=== PATIENT | male | born 1955 | race Caucasian/White ===

== ENCOUNTER → 2016-08-18 | Day surgery (SDC) | payer MEDICAID ==
[~2016-08-18] MED LIST: BENZOCAINE UNIT DOSE SPRAY HURRICAINE MM ONE; MIDAZOLAM 2 MG/2 ML VIAL IVP ONE; NS 1,000 ML IV ONE; PROPOFOL 200 MG/20 ML VIAL IVP ONE; PROPOFOL 200 MG/20 ML VIAL ONE; fentaNYL 100 MCG/2 ML INJ IVP ONE
--- NOTE | 2016-08-18 08:45 | CPEKG ---
Heart Rate: 81 RR Interval: 741 QRSD Interval: 102 QT Interval: 416 QTC Interval: 483 QRS [place]: 62 T Wave [place]: 48 EKG Severity - ABNORMAL ECG - EKG Impression: ATRIAL FIBRILLATION, V-RATE 58-96 Electronically Signed By: Gorge Almendarez 18-Aug-2016 14:12:09
[2016-08-18 09:03] LABS: ANION GAP 7 mEq/L (8-16); CARBON DIOXIDE 26 mEq/l (22-31); CHLORIDE 103 mEq/L (97-110); CREATININE 0.7 mg/dL (0.7-1.3); GLOMERULAR FILTRATION RATE > 60; GLUCOSE 100 mg/dL (70-100); MAGNESIUM 2.1 mg/dL (1.6-2.3); POTASSIUM 4.5 mEq/L (3.5-5.2); SODIUM 136 mEq/L (134-144)
[2016-08-18 09:18] LABS: APTT 32.6 SEC (23.0-38.0); INR 1.78 (0.83-1.16); PROTIME(PATIENT) 20.8 SEC (12.0-15.0)
--- NOTE | 2016-08-18 10:37 | CPEKG ---
Heart Rate: 54 RR Interval: 1111 P-R Interval: 204 QRSD Interval: 102 QT Interval: 468 QTC Interval: 444 P [place]: 58 QRS [place]: 75 T Wave [place]: 57 EKG Severity - NORMAL ECG - EKG Impression: SINUS RHYTHM EKG Impression: RIGHT VENTRICULAR CONDUCTION DELAY Electronically Signed By: Gorge Almendarez 18-Aug-2016 14:11:16
--- NOTE | 2016-08-18 10:40 | CPIP ---
[f rep st] INVASIVE CARDIAC PROCEDURE DATE OF PROCEDURE: 08/18/2016 PROCEDURE: STACY-guided cardioversion. INDICATIONS: Symptomatic atrial fibrillation. COMPLICATIONS: None apparent. DESCRIPTION OF PROCEDURE: N.p.o. status was confirmed, informed consent obtained, and time-out perf ormed. Sedation was provided by Dr. Ruiz of the anesthesia service. The STACY probe was passed w ithout difficulty and images obtained. Please see separate report. In summary, normal LV systolic function. No intracardiac thrombus. Mild mitral regurgitation. Intact interatrial septum. We elected to proceed with cardioversion. The patient received a single 200 joule synchronized shoc k, which converted him from atrial fibrillation to sinus bradycardia. 12-lead EKG is pending. CONCLUSIONS: 1. Successful STACY-guided cardioversion. 2. Continue Xarelto for a minimum of 30 days post cardioversion. 3. Follow up with RODNEY Leblanc in 1 week. 4. Patient currently in stable condition. /[id number]/MODL
--- NOTE | 2016-08-19 13:51 | ECHO ---
[id number] + + [address] : : [place] [id number] : : [phone] + + Transesophageal Echocardiographic Report + ----+ :Name: JEFF WRIGHT MStudy Date: 08/18/2016 09:16 AM : : Hospital Ad[place]: [id number] [facility]: :: 1955 Gender: Male : :Age: 61 yrs Race: WH : :Reason For Study: Atrial Fibrillation : + ----+ Left Ventricle Left ventricular systolic function is normal. Atria Injection of contrast documented no interatrial shunt. No thrombus is detected in the left atrial appendage. Mitral Valve There is mild mitral regurgitation. Aortic Valve The aortic valve is trileaflet. Procedure NPO status was confirmed, informed consent obtained, and timeout performed. Sedation was provided by the anesthesia service. The STACY probe was passed without difficulty. No apparent complications. Conclusion A 2D transesophageal echocardiogram with color flow Doppler was performed. Proceed with cardioversion. Left ventricular systolic function is normal. Injection of contrast documented no interatrial shunt. There is mild mitral regurgitation. No thrombus is detected in the left atrial appendage. Final Reading Physician: Dr Diana Chin electronically signed on 08/19/2016 01:50 PM Ordering Physician: Diana Chin Performed By: Dr Diana Chin
== END | disposition home or self-care (01) ==
LOC: FCATH 07:51
PROVIDERS: ATTEND Internal Medicine Cardiovascular Disease
PROC: 5A2204Z Restoration of Cardiac Rhythm, Single (ICD-10-PCS; principal; 2016-08-18)
PROC: B246ZZ4 Ultrasonography of Right and Left Heart, Transesophageal (ICD-10-PCS; principal; 2016-08-18)
DX: I48.0 Paroxysmal atrial fibrillation (principal); G47.33 Obstructive sleep apnea (adult) (pediatric); I10 Essential (primary) hypertension; J45.909 Unspecified asthma, uncomplicated; I42.8 Other cardiomyopathies
CPT/HCPCS: J2704

== ENCOUNTER 2017-05-25 06:54 | Day surgery (SDC) | payer MEDICAID ==
[2017-05-25] MEDS ORDERED: BENZOCAINE UNIT DOSE SPRAY HURRICAINE MM ONE (07:00)
[2017-05-25] MEDS ORDERED: ATROPINE SULFATE 1 MG/10 ML SYR IVP ONE (07:00)
[2017-05-25] MEDS ORDERED: MIDAZOLAM 2 MG/2 ML VIAL IVP ONE (07:00)
[2017-05-25] MEDS ORDERED: fentaNYL 100 MCG/2 ML INJ IVP ONE (07:00)
[2017-05-25] MEDS ORDERED: NS 500 ML IV ONE (07:00)
--- NOTE | 2017-05-25 07:18 | CPEKG ---
Heart Rate: 102 RR Interval: 588 QRSD Interval: 104 QT Interval: 392 QTC Interval: 511 QRS [place]: 61 T Wave [place]: 23 EKG Severity - ABNORMAL ECG - EKG Impression: ATRIAL FIBRILLATION EKG Impression: PROLONGED QT INTERVAL EKG Impression: Non-specific T-wave changes in anterior leads Electronically Signed By: Blayne Best 25-May-2017 07:25:37
[2017-05-25 07:43] LABS: INR 1.82 (0.83-1.16); PROTIME(PATIENT) 21.2 SEC (12.0-15.0)
[2017-05-25] MEDS ORDERED: LR 500 ML IV PRN (08:30)
[2017-05-25] MEDS ORDERED: NALOXONE HCL 0.4 MG/ML INJ IVP PRN (08:30)
[2017-05-25] MEDS ORDERED: fentaNYL 100 MCG/2 ML INJ IVP PRN (08:30)
[2017-05-25] MEDS ORDERED: ACETAMINOPHEN 500 MG TAB PO PRN (08:30)
[2017-05-25] MEDS ORDERED: ONDANSETRON 4 MG/2 ML VIAL IVP PRN (08:30)
--- NOTE | 2017-05-25 08:31 | PDANEPAE ---
ANE Past Medical History - Pulmonary History Hx Asthma/Reactive Airway Disease: Yes Hx Oxygen in Use at Home: No Hx Sleep Apnea: Yes - Endocrine History Hx Diabetes: No Obesity: no ANE Review of Systems Review of Systems: - Exercise capacity METS (RN): 6 METS ANE Patient History - Allergies Allergies/Adverse Reactions: aspirin Allergy (Verified 08/05/13 17:16) - Home Medications Home Medications: Herbals/Supplements -Info Only 1 ea PO DAILY 08/05/13 [Last Taken Unknown] Multivitamins [Multivitamin (*)] 1 each PO DAILY 08/05/13 [Last Taken Unknown] - Anes Hx Anes Hx: no prior problems - Smoking Hx Smoking Status: Never smoked ANE Labs/Vital Signs - Labs Result Diagrams: 05/25/17 07:15 - Vital Signs Height: 178 cm Weight: 97.5 kg ANE Physical Exam - Airway Neck exam: FROM Mallampati Score: Class 2 Mouth exam: normal dental/mouth exam - Pulmonary Pulmonary: no respiratory distress, no rales or rhonchi, clear to auscultation - Cardiovascular Cardiovascular: regular rate and rhythym, no murmur, rub, or gallop - ASA Status ASA Status: II ANE Anesthesia Plan Anesthesia Plan: GA with mask Total IV Anesthesia: Yes
[2017-05-25] MEDS ORDERED: PROPOFOL 200 MG/20 ML VIAL ONE ×2 (08:38→08:51)
[2017-05-25] MEDS ORDERED: SUCCINYLCHOLINE CHLORIDE 200 MG/10 ML SYR IVP ONE (08:39)
[2017-05-25] MEDS ORDERED: LIDOCAINE 1% 5 ML SDV ONE (08:39)
--- NOTE | 2017-05-25 09:01 | PDGENHP ---
History & Physical Chief Complaint: symptomatic afib History of Present Illness: afib Relevant Physical Exam: s1s2 irreg. cta. ao3 Cardiorespiratory Assessment: 62 m with symptomatic afib for semaj + cv
--- NOTE | 2017-05-25 09:14 | PDTEE1 ---
STACY Cardioversion Procedure Procedure: electrical cardioversion, transesophageal echo Indications: atrial fibrillation Consent: signed and in chart Anticoagulation: xarelto Procedural Details: Pads were placed in anterior-posterior position. STACY probe was advanced and standard images obtained. There is no evidence of left atrial or left atrial appendage thrombus. Synchronized cardioversion attempt #1: 200J Results: normal sinus rhythm Conclusions: successful STACY cardioversion (Patient has been asked to continue Xarelto 20 mg daily for 6 weeks) Patient Problems: Problems Problem Status Onset CHF (congestive heart failure) Acute Atrial fibrillation Acute HTN (hypertension) Acute
--- NOTE | 2017-05-25 09:23 | CPEKG ---
Heart Rate: 60 RR Interval: 1000 P-R Interval: 196 QRSD Interval: 110 QT Interval: 448 QTC Interval: 448 P [place]: 46 QRS [place]: 19 T Wave [place]: 41 EKG Severity - ABNORMAL ECG - EKG Impression: SINUS RHYTHM EKG Impression: NONSPECIFIC INTRAVENTRICULAR CONDUCTION DELAY Electronically Signed By: Blayne Best 25-May-2017 17:48:27
--- NOTE | 2017-05-25 12:13 | POSTANESTH ---
Post Anesthetic Evaluation Cardiovascular Status: Normal, Stable Respiratory Status: Normal, Stable, Similar to Pre-op Cond. Level of Consciousness/Mental Status: Can Participate in Eval, Alert and Oriented Pain Control: Adequate, Prn Tx Ordered Nausea/Vomiting Control: Adequate, Prn Tx Ordered Complications Possibly Related to Anesthesia: None Noted
== END 2017-05-25 10:30 | disposition home or self-care (01) ==
LOC: FCATH 06:54
PROVIDERS: ATTEND Internal Medicine Cardiovascular Disease
DX: I48.91 Unspecified atrial fibrillation (principal); Z88.6 Allergy status to analgesic agent
CPT/HCPCS: J0330; J0461; J2704

== ENCOUNTER → 2017-10-13 | Outpatient (CLI) | payer MEDICAID ==
[~2017-10-13] MED LIST changes: -BENZOCAINE UNIT DOSE SPRAY HURRICAINE MM ONE; +IOPAMIDOL (ISOVUE 370) 100 ML BTL IV ONE; -MIDAZOLAM 2 MG/2 ML VIAL IVP ONE; -NS 1,000 ML IV ONE; -PROPOFOL 200 MG/20 ML VIAL IVP ONE; -PROPOFOL 200 MG/20 ML VIAL ONE; -fentaNYL 100 MCG/2 ML INJ IVP ONE
== END ==
LOC: FIMAGING 11:31
PROVIDERS: ATTEND Internal Medicine Cardiovascular Disease
DX: I48.91 Unspecified atrial fibrillation (principal); I25.83 Coronary atherosclerosis due to lipid rich plaque
CPT/HCPCS: Q9967

== ENCOUNTER 2017-10-16 10:54 | Observation (INO) | payer MEDICAID ==
[2017-10-16] MEDS ORDERED: NS 1,000 ML IV ONE (10:58)
--- NOTE | 2017-10-16 11:20 | CPEKG ---
Heart Rate: 50 RR Interval: 1200 P-R Interval: 204 QRSD Interval: 106 QT Interval: 484 QTC Interval: 442 P [place]: 54 QRS [place]: 62 T Wave [place]: 53 EKG Severity - NORMAL ECG - EKG Impression: SINUS RHYTHM Electronically Signed By: Jn Peng 19-Oct-2017 21:23:16
[2017-10-16 11:31] LABS: PLATELET COUNT 235 10^3/uL (150-400)
[2017-10-16 11:53] LABS: INR 0.99 (0.83-1.16); PROTIME(PATIENT) 13.3 SEC (12.0-15.0)
--- NOTE | 2017-10-16 13:56 | PDGENHP ---
History & Physical Chief Complaint: symptomatic AFIB Relevant Physical Exam: [id number] cta ao3 Cardiorespiratory Assessment: symptomatic afib for CB PVI
[2017-10-16] MEDS ORDERED: HEPARIN/DEXTROSE 25,000 UNIT/500 ML BAG ONE (13:59)
[2017-10-16] MEDS ORDERED: HEPARIN 10,000 UNIT/10 ML MDV (1,000 UNIT/ML) ONE ×2 (14:00→15:57)
[2017-10-16] MEDS ORDERED: LIDOCAINE 1% 300 MG/30 ML SDV ONE (14:00)
[2017-10-16] MEDS ORDERED: BUPIVACAINE 0.75% 10 ML SDV ONE (14:00)
[2017-10-16] MEDS ORDERED: IOPAMIDOL (ISOVUE-300) 100 ML BTL ONE (14:01)
--- NOTE | 2017-10-16 14:06 | PDANEPAE ---
ANE History of Present Illness afib ANE Past Medical History - Cardiovascular History Hx Arrhythmias: Yes - Pulmonary History Hx Asthma/Reactive Airway Disease: Yes Hx Oxygen in Use at Home: No Hx Sleep Apnea: Yes - Endocrine History Hx Diabetes: No ANE Review of Systems Review of Systems: ANE Patient History - Allergies Allergies/Adverse Reactions: No Known Allergies Allergy (Unverified 10/09/17 11:11) - Home Medications Home Medications: Herbals/Supplements -Info Only 1 ea PO DAILY 08/05/13 [Last Taken Unknown] Multivitamins [Multivitamin (*)] 1 each PO DAILY 08/05/13 [Last Taken Unknown] Apixaban [Eliquis] 5 mg PO BID 10/09/17 [Last Taken Unknown] Carvedilol 12.5 mg PO BIDMEAL 10/09/17 [Last Taken Unknown] Losartan Potassium [Cozaar 50 mg (*)] 50 mg PO DAILY 10/09/17 [Last Taken Unknown] Propafenone HCl Sr [Rythmol Sr 225mg (*)] 225 mg PO BID 10/09/17 [Last Taken Unknown] - Smoking Hx Smoking Status: Never smoked ANE Labs/Vital Signs - Labs Result Diagrams: 10/16/17 11:25 10/16/17 11:25 - Vital Signs Height: 178 cm Weight: 97.5 kg ANE Physical Exam - Airway Neck exam: FROM Mallampati Score: Class 1 Mouth exam: normal dental/mouth exam - Pulmonary Pulmonary: no respiratory distress - Cardiovascular Cardiovascular: regular rate and rhythym - ASA Status ASA Status: III ANE Anesthesia Plan Anesthesia Plan: general endotracheal anesthesia
[2017-10-16] MEDS ORDERED: HYDROmorphONE/DILAUDID 2 MG/ML INJ ONE (14:10)
[2017-10-16] MEDS ORDERED: PROPOFOL 200 MG/20 ML VIAL ONE ×2 (14:10)
[2017-10-16] MEDS ORDERED: fentaNYL 100 MCG/2 ML INJ ONE ×2 (14:10)
[2017-10-16] MEDS ORDERED: MIDAZOLAM 2 MG/2 ML VIAL ONE (14:11)
[2017-10-16] MEDS ORDERED: ROCURONIUM 50 MG/5 ML VIAL ONE (14:14)
[2017-10-16] MEDS ORDERED: ONDANSETRON 4 MG/2 ML VIAL ONE (14:14)
[2017-10-16] MEDS ORDERED: PHENYLEPHRINE HCL 100 MCG/ML SYR ONE (14:14)
[2017-10-16] MEDS ORDERED: DEXAMETHASONE 4 MG/ML VIAL ONE (14:14)
[2017-10-16] MEDS ORDERED: ePHEDrine SULFATE 25 MG/5 ML SYR ONE (14:14)
[2017-10-16] MEDS ORDERED: PROTAMINE SULFATE 50 MG/5 ML VIAL IVP ONE (16:57)
--- NOTE | 2017-10-16 17:17 | EPPROC ---
Electrophysiology Procedure Note: ELECTROPHYSIOLOGIC STUDY AND BALLOON-CATHETER MEDIATED CRYOABLATION FOR PAROXYSMAL ATRIAL FIBRILLATION Procedures performed: 59821-19 EP evaluation with RA/RV/LA pace/record, with arrhythmia induction 27954-49 EP evaluation with RA/RV pace record, insert/reposition catheter, with arrhythmia induction 08115 Atrial fibrillation ablation Intracardiac echocardiogram Transseptal puncture Fluoroscopy INDICATION: Paroxysmal atrial fibrillation PROCEDURE: The patient arrived in the Electrophysiology Laboratory in the fasting state. The right groin, left groin and right infraclavicular area were prepped and draped in the usual sterile fashion. Anesthesiologist administered general anesthesia Dr. Kelin Edwards . All catheters were placed percutaneously using the Seldinger technique and advanced into position under fluoroscopic guidance. One #7 Slovenian deflectable octapolar electrode catheter was placed in the His-bundle position via the left femoral vein (2mm spacing, IVC electrode for unipolar recordings). This catheter was placed in the coronary sinus after transseptal puncture and later placed in the SVC-R subclavian vein junction to pace the right phrenic nerve during right pulmonary vein ablation. One #8 [place] AcuNaV ultrasound catheter was placed in the left femoral vein and advanced into the right atrium. One #4 [place] sheath was inserted into the left femoral artery via percutaneous technique and used for continuous arterial blood pressure monitoring and intermittent ACT determination. Programmed stimulation was performed from the right atrium, left atrium (CS) and right ventricle. There was no evidence of AV accessory pathway. Intracardiac echo evaluation of the left atrium and pulmonary veins was performed. Baseline ACT was drawn and heparin bolus was administered and heparin drip was started prior to transseptal puncture. ACT was checked every 15 minutes and maintained in the range of 350-400 seconds. One 14Fr short sheath was placed in the right femoral vein. One 8Fr SL1 sheath was advanced into the right atrium via the 14Fr short sheath. Transseptal puncture was performed under intracardiac ultrasound, fluoroscopic and hemodynamic guidance placing the sheath into the left atrium. [place] RF needle ( C0 curve) was used. The mean left atrial pressure was 6 mmHg. Pulmonary vein angiogram was done using SL1 sheath. CT angiography of pulmonary veins was done previously. 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 The SL1 sheath was exchanged for a ArrayCommtronic Flexcath sheath using an Amplatz stiff guide wire. A 28 mm Cryoballoon catheter with a 20 mm Achieve catheter was placed via the sheath into the left atrium. Intracardiac ultrasound and PV angiograms were used to assist in placing the mapping catheter at the antrum of the pulmonary veins. All pulmonary veins were isolated successfully using cryoballoon ablation using freeze/thaw/freeze cycles at 2-3-minute intervals, with good [id number] of isolation. Coumadin ridge/Ligament of Vishal region was ablated. Pre and post pulmonary vein recordings were measured on the spiral Achieve catheter to ensure complete pulmonary vein isolation. During the right-sided ablation, phrenic nerve pacing was performed to assess the phrenic nerve strength ( manually and with ICE visualization of liver movement during phrenic capture) and the phrenic nerve was intact throughout the right-sided ablation and at the end of the procedure. An esophageal temperature probe (12 electrode, Circa) was placed by the anesthesiologist at the beginning of the procedure. Esophageal temperature was monitored continuously and cryoablation was interrupted if esophageal temperature was <18 C. Esophageal temperature did drop to 18C during LIPV ablation. Cryoapplications 11 total cryoablation time 1567s ICE imaging post ablation was consistent with pre ablation imaging with no changes noted, moreover there was no left atrial/left ventricular thrombus and no pericardial effusion. The catheters were withdrawn. Protamine was given. Venous vascular access sheaths were removed in the EP lab after placing subcutaneous pursestring suture. Arterial sheath was left in place. The patient was recovered from anesthesia. There were no complications. The patient was arousable and moving all four extremities at the end of the procedure. CONCLUSIONS: 1. Paroxysmal atrial fibrillation. 2. Successful pulmonary vein isolation procedure (left and right pulmonary vein antrum) using cryoballoon ablation. 3. No apparent complications. Patient Problems: Problems Problem Status Onset CHF (congestive heart failure) Acute Atrial fibrillation Acute HTN (hypertension) Acute
--- NOTE | 2017-10-16 17:30 | POSTANESTH ---
Post Anesthetic Evaluation Cardiovascular Status: Normal, Stable Respiratory Status: Normal, Stable Level of Consciousness/Mental Status: Can Participate in Eval Pain Control: Adequate, Prn Tx Ordered Nausea/Vomiting Control: Adequate, Prn Tx Ordered Complications Possibly Related to Anesthesia: None Noted
[2017-10-16 18:54] LABS: PLATELET COUNT 202 10^3/uL (150-400)
[2017-10-16] MEDS: APIXABAN 5 MG TAB PO SCH (21:48)
--- NOTE | 2017-10-17 08:33 | CPEKG ---
Heart Rate: 69 RR Interval: 870 P-R Interval: 204 QRSD Interval: 110 QT Interval: 448 QTC Interval: 480 P [place]: 59 QRS [place]: 67 T Wave [place]: 57 EKG Severity - ABNORMAL ECG - EKG Impression: SINUS RHYTHM EKG Impression: ATRIAL PREMATURE COMPLEX EKG Impression: NONSPECIFIC INTRAVENTRICULAR CONDUCTION DELAY Electronically Signed By: Jn Peng 19-Oct-2017 21:22:54
[2017-10-17] MEDS ORDERED: MULTIVITAMINS 1 EACH TAB PO SCH (09:00)
[2017-10-17] MEDS ORDERED: LOSARTAN POTASSIUM 50 MG TAB PO SCH (09:00)
[2017-10-17 09:03] VITALS: BP 133/68
[2017-10-17] MEDS: APIXABAN 5 MG TAB PO SCH (09:08)
--- NOTE | 2017-10-17 09:17 | ASMTCMCOM ---
CM Note CM Note Notes: 62yr old male admitted for Afib. He has a Hx of Afib-cardioversions, CHF, HTN, ELIDIA. Here for an ablation. Lives alone. Not anticipating that patient will have discharge needs. Date Signed: 10/17/2017 09:16 AM Electronically Signed By:An Kelley LCSW
[2017-10-17] MEDS ORDERED: PANTOPRAZOLE SODIUM 40 MG TAB PO ONE (11:55)
[2017-10-17] MEDS ORDERED: MAGNESIUM HYDROXIDE 30 ML UDCUP PO ONE (12:03)
[2017-10-17] MEDS ORDERED: DOCUSATE SODIUM 100 MG CAP PO PRN (12:40)
--- NOTE | 2017-10-17 13:38 | ASDISCHSUM ---
Discharge Information Plan Status:Home with No Needs Medically Cleared to Leave:10/17/2017 Discharge Date:10/17/2017 CM D/C Disposition:Home, Routine, Self-Care ADT D/C Disposition:Home, Routine, Self-Care Projected Discharge Date:10/17/2017 01:00 PM Transportation at D/C:Friend Discharge Delay Reason: Follow-Up Date:10/17/2017 01:00 PM Discharge Slot: Final Diagnosis:Afib Placement Information Patient Contact Information Contact Name:MARIELOS Relationship:Friend Address: Work Phone: City: [facility] Phone: State/Zip Code: Email: Financial Information Financial Class:Medicaid Primary Plan Desc:[employer] HE[employer] FIRST [employer]RO[employer]EL[employer] Primary Plan Number:[id number] Secondary Plan Desc: Secondary Plan Number: Assessment Information [facility] CM Progress Note CM Note CM Note Notes: 62yr old male admitted for Afib. He has a Hx of Afib-cardioversions, CHF, HTN, ELIDIA. Here for an ablation. Lives alone. Not anticipating that patient will have discharge needs. Date Signed: 10/17/2017 09:16 AM Electronically Signed By:An Kelley LCSW LACE LACE Length of stay for Answers: 1 day current admission Acuity / Level of Answers: No Care: Did the patient have an inpatient admission? Comorbidities - select Answers: Congestive heart failure all that apply Other Notes: HTN, Afib, ELIDIA # of Emergency department Answers: 0 visits in the last 6 months Score: 4 Date Signed: 10/17/2017 01:37 PM Electronically Signed By:An Kelley LCSW Case Management Discharge Plan Note Case Management Discharge Discharge Order Complete? Answers: Yes Patient to Obtain Answers: via Family Medications Transportation Arranged Answers: Family/Friends Transport will Pick (Date 10/17/2017 02:00 PM & Time) Discharge Comments Notes: Patient has been discharged home. No needs. Date Signed: 10/17/2017 01:37 PM Electronically Signed By:An Kelley LCSW Intervention Information
--- NOTE | 2017-10-17 14:41 | CPEKG ---
Heart Rate: 60 RR Interval: 1000 P-R Interval: 208 QRSD Interval: 110 QT Interval: 484 QTC Interval: 484 P [place]: 54 QRS [place]: 74 T Wave [place]: 53 EKG Severity - ABNORMAL ECG - EKG Impression: SINUS RHYTHM EKG Impression: NONSPECIFIC INTRAVENTRICULAR CONDUCTION DELAY Electronically Signed By: Jn Peng 19-Oct-2017 21:23:06
--- NOTE | 2017-10-17 15:09 | ECHO ---
[email or web address] [address] [address] Main: [phone] Fax: Transthoracic Echocardiogram Name: JEFF WRIGHT MR#: [id number] Study Date: 10/17/2017 Study Time: 07:41 AM Date of : 1955 Age: 62 year(s) Height: 177.8 cm (70 in.) Weight: 97.07 kg (214 lb.) BSA: 2.15 m2 Gender: Male Examination: Echo Indication: Post EP Image Quality: Contrast: Requested by: Rj Colon BP: 118 mmHg/72 mmHg Heart Rate: Rhythm: Indication: Post EP Procedure Staff Technical Aide: Al Palencia RDCS Reading Physician: Tian Saxena MD Requesting Provider: Conclusions: Normal size left ventricle. Normal global systolic LV function. EF is 71 %. Normal size right ventricle. Normal RV function. The left atrium is normal in size. The right atrium is normal in size. Trivial anterior pericardial effusion. No echocardiographic evidence of hemodynamic compromise. Measurements: Chambers Valvular Assessment AV/MV Valvular Assessment TV/PV Normal Normal Normal Name Value Range Name Value Range Name Value Range Ao Dede (MM): 4.2 cm (2.2 cm-3.7 AV Vmax: 1.38 m/s (1 m/s-1.7 PV Vmax: 0.81 m/s (0.6 m/s-0.9 cm) m/s) m/s) IVSd (2D): 0.9 cm (0.6 cm-1.1 AV maxP mmHg ( - ) PV PGmax: 3 mmHg ( - ) cm) LVOT Vmax: 1.18 m/s (0.7 m/s-1.1 LVDd (2D): 5.5 cm (4.2 cm-5.9 m/s) cm) MV E Vmax: 0.82 m/s ( - ) LVDs (2D): 3.3 cm (2.1 cm-4 MV A Vmax: 0.64 m/s ( - ) cm) MV E/A: 1.28 ( - ) LVPWd (2D): 1.0 cm (0.6 cm-1 cm) LVEF (2D): 71 (>=54 %) Continued Measurements: Chambers Valvular Assessment AV/MV Name Value Name Value Patient: JEFF WRIGHT Study Date: 10/17/2017 Page 1 of 2 07:41 AM LADs Lon.2 cm MV E' Septal: 0.06 m/s LA Area: 18.4 cm2 MV E/E' Septal: 14.10 LA Volume: 68 ml MV E/E' Lateral: 7.80 LA Volume Index: 31.6 ml/m2 Findings: Left Ventricle: Normal size left ventricle. No LV hypertrophy. Normal global systolic LV function. EF is 71 %. No regional wall motion abnormality. Diastolic dysfunction is present. . Right Ventricle: Normal size right ventricle. Normal RV function. Left Atrium: The left atrium is normal in size. Right Atrium: The right atrium is normal in size. Mitral Valve: The mitral valve is normal in appearance and function. Aortic Valve: The aortic valve is normal in appearance and function. Tricuspid Valve: The tricuspid valve is normal in appearance and function. Pulmonic Valve: The pulmonic valve is normal in appearance and function. Aorta: The aorta is normal. Pericardium: Trivial anterior pericardial effusion. No echocardiographic evidence of hemodynamic compromise. (No Signature Object) Patient: JEFF WRIGHT Study Date: 10/17/2017 Page 2 of 2 07:41 AM [id number]
--- NOTE | 2017-10-17 16:58 | GDS ---
[f rep st] DISCHARGE SUMMARY ADMISSION DIAGNOSES: 1. Paroxysmal atrial fibrillation. 2. Hypertension. 3. Obstructive sleep apnea. DISCHARGE DIAGNOSES: 1. Paroxysmal atrial fibrillation. 2. Status post atrial fibrillation, pulmonary vein isolation with Cryoballoon. 3. Hypertension. 4. Obstructive sleep apnea. PROCEDURES PERFORMED DURING HOSPITALIZATION: 1. STACY. 2. Electrophysiology study. 3. Pulmonary vein isolation with Cryoballoon. 4. EKG. 5. Transthoracic echocardiogram. BRIEF HISTORY: Please see H and P. The patient is a 62-year-old male who has known history of paroxysmal atrial fibrillation, and usually he has 1-2 episodes of atrial fibrillation, and has had previous cardioversion. Over the last year, he has had 3 events.. Initially treated with increase in his carvedilol dosage, with reporting increased symptoms of fatigue and shortness of breath. Patient was seen by Dr. Colon, and felt to be appropriate candidate for electrophysiology study, with consideration of ablation. HOSPITAL COURSE: Patient admitted through CVC, prepped for procedure, and taken to electrophysiology lab. There, Dr. Colon performed a transthoracic echocardiogram, followed by electrophysiology study. At the end of the EP study , intervention was performed with a pulmonary vein isolation procedure using Cryoballoon ablation. No apparent complications. Patient was transferred back to the intensive care unit overnight. There, he had remained in sinus rhythm. He did have some mild oozing from his right groin, which was appropriately treated with manual pressure with hemostasis obtained by the ICU staff. His vital signs remained stable. Today he has been up and walking in the unit, reporting no symptoms of chest pain, shortness of breath, lightheadedness, palpitations, near syncope, or syncopal events. He has remained in sinus rhythm with occasional PAC and PVC, but no other malignant arrhythmias or pauses. His only concern is he has been somewhat constipated and was provided milk of magnesia today. PHYSICAL EXAMINATION: GENERAL APPEARANCE: Done today. Medium-built, mildly obese, male. He is alert and oriented to person, place, time, and situation. Appears to be in no acute distress. VITAL SIGNS: Current vital signs are blood pressure of 133/68. Heart rate of 67. Respirations 14. Saturation 96% on room air. Temperature 36.8 degree Celsius. HEENT: Head is normocephalic. Lips and tongue are pink and moist with no signs of cyanosis. Conjunctivae pink. NECK: Trachea is midline, +2 carotid pulses bilateral. No auscultated bruits. No jugular vein distention. RESPIRATORY: Lungs are clear to auscultation, no rhonchi, rales or wheezes. No accessory muscle use. No intercostal muscle retraction noted. CARDIAC: Regular rate, regular rhythm. S1, S2. No S3, S4, gallops, rubs or murmurs noted. ABDOMEN: Soft, nontender, bowel sounds x4 quadrants. No organomegaly. No palpable masses. SKIN: [place], warm, dry, no cyanosis, no clubbing, no peripheral edema. VASCULAR: +2 carotids bilateral, +2 radials bilateral, +1 dorsal pedal and posterior tibial pulses bilateral. Catheter insertion site, bilateral groin sites, with no redness, swelling, drainage, ecchymosis, or hematoma. Suture removed intact. No auscultated bruit over site, normal CMS checks to both lower extremities. LABORATORY STUDIES: Laboratory studies drawn postprocedure last night showed WBC of 4.63, hemoglobin 12.9, hematocrit 37.0, platelet count of 202; a.m. lab showed sodium of 136, potassium 4.1, chloride 108, CO2 24, BUN 10, creatinine 0.7, glucose 89, calcium 8.6, magnesium 2.0. Troponin of 8.320. (Note: Expected to have elevated troponin level after ablation procedure.) STUDIES: STACY, electrophysiology, and pulmonary vein isolation procedure as mentioned above. Morning electrocardiogram showed sinus rhythm, normal axis, nonspecific intraventricular conduction delay, premature atrial contraction. Echocardiogram done this morning showed normal LV size, normal LV global systolic function with ejection fraction of 71%, normal RV size, normal RV function, LA is normal size, RA is normal size, trivial anterior pericardial effusion with no echocardiogram evidence of hemodynamic compromise. DISCHARGE DISPOSITION: Patient will be discharged home in stable condition. He is under activity restrictions of not lifting more than 10 pounds for the next week and no strenuous activity for the next 2 weeks. DISCHARGE MEDICATIONS: Please see discharge medication reconciliation sheet. Note: Patient's previous dosage of carvedilol and Rythmol have been discontinued. He will resume on the rest of his home medications; he has been resumed on anticoagulation therapy of Eliquis. Patient also has been recommended to start taking Colace for the next week or so post procedure and milk of magnesia as needed. Patient has been started on Protonix 40 mg p.o. daily for the next 6 weeks. DISCHARGE INSTRUCTIONS: Post electrophysiology/Cryoballoon ablation. Discharge instructions went over with the patient including monitoring for signs of infection, activity restrictions, bleeding precautions, and medication compliancy. Patient has also been encouraged for DVT precaution, to get up and walk every 35-45 minutes after sitting while awake. He is encouraged to continue using incentive spirometer for the next 2 days. He has also been encouraged to use stool softeners for the next week or two with recent femoral vein access. At the time of discharge patient verbalizes understanding all instructions and has no questions or concerns. Patient does have a followup appointment set with Dr. Colon in the next 2 weeks. He has been told that if any problems or concerns post discharge, he is going to contact our office or return to the hospital. Total time spent on discharge: Greater than 30 minutes. /[id number]/MODL MTDD
--- NOTE | 2017-10-21 09:42 | ECHO ---
[email or web address] [address] [address] Main: [phone] Fax: Transesophageal Echocardiography Name: JEFF WRIGHT MR#: [id number] Study Date: 10/16/2017 Study Time: 02:41 PM Date of : 1955 Age: 62 year(s) Height: ( ) Weight: ( ) BSA: Gender: Male Examination: STACY Indication: Pre EP Image Quality: Contrast: Requested by: Rj Colon Heart Rate: Rhythm: BP: / Procedure Staff Plumbing Designer: Al Palencia RDCS Reading Physician: Rj Colon MD Requesting Provider: STACY Exam Details Patient Consent: Risks, alternatives of procedure explained to patient, informed consent obtained. Conclusions: Normal global systolic LV function. The left atrium is normal in size. An agitated saline study was performed and was negative for intracardiac shunting. Good color flow doppler in the left atrial appendage. No thrombus in left appendage. Measurements: Chambers Valvular Assessment AV/MV Valvular Assessment TV/PV Normal Normal Normal Name Value Range Name Value Range Name Value Range Additional Measurements: Findings: Left Ventricle: Normal size left ventricle. No LV hypertrophy. Normal global systolic LV function. No regional wall motion abnormality. Normal diastolic LV function. Right Ventricle: Normal size right ventricle. Left Atrium: The left atrium is normal in size. An agitated saline study was performed and was negative for intracardiac shunting. Patient: JEFF WRIGHT Study Date: 10/16/2017 Page 1 of 2 02:41 PM Left Atrial Appendage: Good color flow doppler in the left atrial appendage. No thrombus in left appendage. Right Atrium: The right atrium is normal in size. Mitral Valve: The mitral valve is normal in appearance and function. Aortic Valve: The aortic valve is normal in appearance and function. Tricuspid Valve: The tricuspid valve is normal in appearance and function. Pulmonic Valve: The pulmonic valve is normal in appearance and function. Aorta: The aorta is normal. Pericardium: No pericardial effusion. l1n (No Signature Object) Patient: JEFF WRIGHT Study Date: 10/16/2017 Page 2 of 2 02:41 PM [id number]
== END 2017-10-17 14:25 | disposition home or self-care (01) ==
LOC: FCATH 10:54 → F2N 17:17
PROVIDERS: ADMIT Internal Medicine Cardiovascular Disease; ATTEND Internal Medicine Cardiovascular Disease
PROC: B245ZZZ Ultrasonography of Left Heart (ICD-10-PCS; principal; 2017-10-16)
PROC: 025S3ZZ Destruction of Right Pulmonary Vein, Percutaneous Approach (ICD-10-PCS; principal; 2017-10-16)
PROC: 025T3ZZ Destruction of Left Pulmonary Vein, Percutaneous Approach (ICD-10-PCS; principal; 2017-10-16)
PROC: 5A1213Z Performance of Cardiac Pacing, Intermittent (ICD-10-PCS; principal; 2017-10-16)
PROC: 02K83ZZ Map Conduction Mechanism, Percutaneous Approach (ICD-10-PCS; principal; 2017-10-16)
DX: I48.0 Paroxysmal atrial fibrillation (principal); K59.00 Constipation, unspecified; I10 Essential (primary) hypertension; G47.33 Obstructive sleep apnea (adult) (pediatric)
CPT/HCPCS: 93005; 93306; 93312; 93613; 93621; 93656; 93662; C1893; G0378; C1730; C1731; C1732; C1733; C1759; C1766; C1769; J1100; J1170; J1644; J2250; J2370; J2405; J2704; J2720; J3010; Q9967

== ENCOUNTER 2017-11-07 10:45 | Day surgery (SDC) | payer MEDICAID ==
[2017-11-07] MEDS ORDERED: ATROPINE SULFATE 1 MG/10 ML SYR IVP ONE (11:38)
[2017-11-07] MEDS ORDERED: BENZOCAINE UNIT DOSE SPRAY HURRICAINE MM ONE (11:38)
[2017-11-07] MEDS ORDERED: fentaNYL 100 MCG/2 ML INJ IVP ONE (11:38)
[2017-11-07] MEDS ORDERED: MIDAZOLAM 2 MG/2 ML VIAL IVP ONE (11:38)
[2017-11-07] MEDS ORDERED: NS 500 ML IV ONE (11:38)
--- NOTE | 2017-11-07 11:55 | CPEKG ---
Heart Rate: 94 RR Interval: 638 QRSD Interval: 98 QT Interval: 384 QTC Interval: 481 QRS [place]: 66 T Wave [place]: 45 EKG Severity - ABNORMAL ECG - EKG Impression: ATRIAL FIBRILLATION, V-RATE 67-130 EKG Impression: BORDERLINE PROLONGED QT INTERVAL Electronically Signed By: Jessica Lauren 07-Nov-2017 12:03:12
[2017-11-07 12:16] LABS: INR 1.16 (0.83-1.16)
--- NOTE | 2017-11-07 12:42 | PDANEPAE ---
ANE Past Medical History - Cardiovascular History Hx Arrhythmias: Yes - Pulmonary History Hx Asthma/Reactive Airway Disease: Yes Hx Oxygen in Use at Home: No Hx Sleep Apnea: Yes - Endocrine History Hx Diabetes: No - Chronic Pain History Chronic Pain: No ANE Review of Systems Review of Systems: ANE Patient History - Allergies Allergies/Adverse Reactions: No Known Allergies Allergy (Unverified 10/09/17 11:11) - Home Medications Home Medications: Herbals/Supplements -Info Only 1 ea PO DAILY 08/05/13 [Last Taken Unknown] Multivitamins [Multivitamin (*)] 1 each PO DAILY 08/05/13 [Last Taken Unknown] Apixaban [Eliquis] 5 mg PO BID 10/09/17 [Last Taken 11/07/17 08:00] Losartan Potassium [Cozaar 50 mg (*)] 50 mg PO DAILY 10/09/17 [Last Taken 08:00] Propafenone HCl Sr [Rythmol Sr 225mg (*)] 225 mg PO BID 11/07/17 [Last Taken 08:00] - Smoking Hx Smoking Status: Never smoked ANE Labs/Vital Signs - Labs Result Diagrams: 11/07/17 11:45 ANE Physical Exam - Airway Neck exam: FROM, short neck Mallampati Score: Class 2 Mouth exam: normal dental/mouth exam - Pulmonary Pulmonary: no respiratory distress, no rales or rhonchi, clear to auscultation - Cardiovascular Cardiovascular: irregularly irregular - ASA Status ASA Status: III ANE Anesthesia Plan Anesthesia Plan: GA with mask
[2017-11-07] MEDS ORDERED: PROPOFOL 200 MG/20 ML VIAL ONE (12:43)
[2017-11-07] MEDS ORDERED: ALBUTEROL 3 ML DEYVIAL IH PRN (12:47)
[2017-11-07] MEDS ORDERED: NALOXONE HCL 0.4 MG/ML INJ IVP PRN (12:47)
--- NOTE | 2017-11-07 12:49 | PDHPUP ---
History & Physical Update H&P update statement: This history and physical update is based on an assessment of the patient which was completed after admission or registration (within 24 hours), but prior to the surgery/procedure. H&P update: H&P reviewed & patient examined, no change in patient's condition since H&P completed (Reviewed Dr. Colon's note dated 11/01/2017)
--- NOTE | 2017-11-07 13:13 | POSTANESTH ---
Post Anesthetic Evaluation Cardiovascular Status: Normal, Stable Respiratory Status: Normal, Stable, Similar to Pre-op Cond. Level of Consciousness/Mental Status: Can Participate in Eval Pain Control: Adequate, Prn Tx Ordered Nausea/Vomiting Control: Adequate, Prn Tx Ordered Complications Possibly Related to Anesthesia: None Noted
--- NOTE | 2017-11-07 13:14 | PDTEE1 ---
STACY Cardioversion Procedure Procedure: electrical cardioversion Indications: atrial fibrillation Consent: signed and in chart Anticoagulation: eliquis Procedural Details: Sedation was provided by the anesthesia service. Pads were placed in anterior- posterior position. STACY probe was advanced and standard images obtained. There is no evidence of left atrial or left atrial appendage thrombus. Synchronized cardioversion attempt #1: 200J Results: normal sinus rhythm Conclusions: successful STACY cardioversion Patient Problems: Problems Problem Status Onset Atrial fibrillation Acute CHF (congestive heart failure) Acute HTN (hypertension) Acute
--- NOTE | 2017-11-07 13:35 | CPEKG ---
Heart Rate: 57 RR Interval: 1053 P-R Interval: 184 QRSD Interval: 106 QT Interval: 468 QTC Interval: 456 P [place]: 52 QRS [place]: 56 T Wave [place]: 55 EKG Severity - NORMAL ECG - EKG Impression: SINUS RHYTHM Electronically Signed By: Jessica Lauren 07-Nov-2017 16:31:46
--- NOTE | 2017-11-08 16:59 | ECHO ---
[email or web address] [address] [address] Main: [phone] Fax: Transesophageal Echocardiography Name: JEFF WRIGHT MR#: [id number] Study Date: 11/07/2017 Study Time: 12:49 PM Date of : 1955 Age: 62 year(s) Height: ( ) Weight: ( ) BSA: Gender: Male Examination: STACY Indication: Pre Cardioversion Image Quality: Contrast: Requested by: Rj Colon Heart Rate: Rhythm: Atrial fibrillation BP: / Procedure Staff Picker / Packer: Al Palencia RDCS Reading Physician: Diana Chin MD Requesting Provider: STACY Exam Details Conclusions: Normal global systolic LV function. No regional wall motion abnormality. Normal size right ventricle. Normal RV function. A bubble exam was performed during the previous exam from 10/16/17 was negative for intracardiac shunting.. Good color flow doppler in the left atrial appendage. No thrombus in left appendage. Proceeded with successful elective DC cardioversion.. Measurements: Chambers Valvular Assessment AV/MV Valvular Assessment TV/PV Normal Normal Normal Name Value Range Name Value Range Name Value Range Additional Measurements: Findings: Left Ventricle: Normal global systolic LV function. No regional wall motion abnormality. Right Ventricle: Normal size right ventricle. Normal RV function. Left Atrium: Patient: JEFF WRIGHT Study Date: 11/07/2017 Page 1 of 2 12:49 PM A bubble exam was performed during the previous exam from 10/16/17 was negative for intracardiac shunting.. Left Atrial Appendage: Good color flow doppler in the left atrial appendage. No thrombus in left appendage. Right Atrium: The right atrium is normal in size. Mitral Valve: The mitral valve is normal in appearance and function. Trivial mitral valve regurgitation. Aortic Valve: The aortic valve is tri-leaflet and functions normally. Tricuspid Valve: The tricuspid valve is normal in appearance and function. Pulmonic Valve: The pulmonic valve is normal in appearance and function. Aorta: The aorta is normal. Pericardium: No pericardial effusion. Exam Comments: Proceeded with successful elective DC cardioversion.. l1n (No Signature Object) Patient: JEFF WRIGHT Study Date: 11/07/2017 Page 2 of 2 12:49 PM [id number]
== END 2017-11-07 14:19 | disposition home or self-care (01) ==
LOC: FCATH 10:45
PROVIDERS: ATTEND Internal Medicine Cardiovascular Disease
PROC: 5A2204Z Restoration of Cardiac Rhythm, Single (ICD-10-PCS; principal; 2017-11-07)
DX: I48.0 Paroxysmal atrial fibrillation (principal); I10 Essential (primary) hypertension; G47.33 Obstructive sleep apnea (adult) (pediatric)
CPT/HCPCS: J0461; J2250; J2704